=== PATIENT | female | born 1980 | race Caucasian/White ===

== ENCOUNTER 2019-06-17 10:31 | Emergency (ER) | payer MEDICAID ==
[~2019-06-17] VITALS: Ht 162.6 cm; Wt 54.4 kg
--- NOTE | 2019-06-17 10:41 | NUR ---
Patient to ER bed 5 to gown for evaluation. Side rails up. Report given to LC Lundberg and LC Recinos.
[2019-06-17 10:42] VITALS: BP_SYST 130
--- NOTE | 2019-06-17 10:45 | NUR ---
SECURITY CALLED TO ER, PT IS ATTEMPTING TO ELOPE AND RESIST CARE AT THIS TIME
[2019-06-17 10:57] LABS: BILIRUBIN,URINE NEGATIVE (NEGATIVE); BLOOD, URINE NEGATIVE (NEGATIVE); CLARITY/URINE CLEAR (CLEAR); COLOR,URINE YELLOW (YELLOW); GLUCOSE,URINE NEGATIVE (NEGATIVE); KETONES,URINE NEGATIVE (NEGATIVE); LEUKOCYTE ESTERASE ,URINE NEGATIVE (NEGATIVE); NITRITE, URINE NEGATIVE (NEGATIVE); PH,URINE 7.5 (5.0-8.0); PROTEIN URINE NEGATIVE (NEGATIVE); UROBILINOGEN,URINE 0.2 (0.2-1.0)
--- NOTE | 2019-06-17 11:05 | NUR ---
Physician order given to place SOFT type restraints to 4 POINT to prevent HARM TO OTHERS. Resraints placed with quick-release ties to bed frame. Will monitor patient frequently.
[2019-06-17 11:10] LABS: BARBITURATE, URINE NEGATIVE (NEG <=200); BENZODIAZEPINE, URINE POSITIVE (NEG <=150); CANNABINOID, URINE NEGATIVE (NEG <=50); COCAINE, URINE NEGATIVE (NEG <=150); METHAMPHETAMINES SCREEN,URINE NEGATIVE (NEG <=500); OPIATE, URINE NEGATIVE (NEG <=100); PHENCYCLIDINE SCREEN,URINE NEGATIVE (NEG <=25); UR TRICYCLIC ANTIDEPRESSANTS NEGATIVE (NEG <=300); URINE AMPHETAMINE NEGATIVE (NEG <=500); URINE METHADONE NEGATIVE (NEG <=200); URINE OXYCODONE SCREEN NEGATIVE (NEG <=100); URINE PROPOXYPHENE SCREEN NEGATIVE (NEG <=300)
--- NOTE | 2019-06-17 11:10 | NUR ---
PT PULLED OFF RESTRAINTS, BECOMING MORE NONCOMPLIANT WITH CARE.
--- NOTE | 2019-06-17 11:10 | NUR ---
20 gauge angiocath placed to R FA. Use of asceptic technique. Opsite placed over site. Blood return noted. Blood for lab drawn from site. Flushed with 10 cc of normal saline. No evidence of infiltration noted. Patient tolerated well.
[2019-06-17] MEDS ORDERED: LORazepam 2 MG/ML VIAL IM ONE (11:15)
[2019-06-17] MEDS ORDERED: LORazepam 2 MG/ML VIAL ONE (11:16)
[2019-06-17 11:24] LABS: BASOPHILS % (AUTO) 0.9 % (0.0-2.0); HEMATOCRIT 39.1 % (36-48); HEMOGLOBIN 13.2 g/dL (12.0-16.0); LYMPHOCYTES # (AUTO) 0.8 K/uL (1.0-5.5); LYMPHOCYTES % (AUTO) 21.6 % (20.5-51.5); MEAN CORPUSCULAR HEMOGLOBIN 32 pg (27-31); MEAN CORPUSCULAR HGB CONC 34 % (32-36); MEAN CORPUSCULAR VOLUME 95 fL (79.0-98.0); MONOCYTES # (AUTO) 0.7 K/uL (0.0-1.0); MONOCYTES % (AUTO) 17.5 % (1.7-9.3); NEUTROPHILS # (AUTO) 2.3 K/uL (1.8-7.7); PLATELET COUNT (AUTO) 300 K/uL (130-430); RED BLOOD CELL COUNT(AUTO) 4.12 MIL/uL (4.2-6.2); RED CELL DISTRIBUTION WIDTH 13.1 % (9.0-15.0); WHITE BLOOD COUNT (AUTO) 3.9 K/uL (4.8-10.8)
[2019-06-17 11:34] LABS: ANION GAP 5 (5-15); CALCIUM 8.5 mg/dL (8.4-11.0); CHLORIDE 102 mmol/L (98-107); CREATININE 0.67 mg/dL (0.55-1.30); GLUCOSE 104 mg/dL (70-99); POTASSIUM 4.2 mmol/L (3.5-5.1); SODIUM SERUM 135 mmol/L (136-145); UREA NITROGEN, BLOOD 8 mg/dL (8-21)
[2019-06-17 11:35] LABS: GFR AFRICAN AMERICAN 127 mL/min (>90)
[2019-06-17 11:40] LABS: ALANINE AMINOTRANSFERASE 31 U/L (12-78); ALBUMIN 3.8 g/dL (3.4-4.8); AMYLASE 43 U/L (0-100); ASPARTATE AMINOTRANSFERASE 23 U/L (10-37); LIPASE 156 U/L (73-393); TOTAL BILIRUBIN 0.2 mg/dL (0.0-1.0)
[2019-06-17 11:41] LABS: ACETAMINOPHEN < 1 ug/mL (1-30); ALCOHOL, BLOOD < 3 mg/dL (<10)
--- NOTE | 2019-06-17 11:52 | NUR ---
Patient requesting to leave, security called. 2 security gaurds arrived. Patient walked out escorted by 2 security gaurds. Patient self removed IV. No [address]
[2019-06-17 11:55] LABS: CHOLESTEROL 178 mg/dL (<200); LDL CHOLESTEROL 66 mg/dL (<100); TRIGLYCERIDES 108 mg/dL (30-150)
[2019-06-17 12:07] VITALS: BP_SYST 131
[2019-06-17 12:07] LABS: HDL CHOLESTEROL 94 mg/dL (>55)
== END 2019-06-17 11:52 | disposition left against medical advice (07) ==
LOC: SED 10:31
DX: R44.0 Auditory hallucinations (principal)
CPT/HCPCS: 36415; 80053; 80061; 80307; 81003; 81025; 82150; 83036; 83690; 84484; 85025; 99283; G0480; G0481; G0482; J2060

== ENCOUNTER 2019-06-19 01:38 | Emergency (ER) | payer MEDICAID ==
[~2019-06-19] VITALS: Ht 160 cm; Wt 61.7 kg
[2019-06-19 01:38] VITALS: BP_SYST 123
--- NOTE | 2019-06-19 01:40 | NUR ---
Patient placed on suicide precautions. Patient placed in room within close proximity to nurses' station for closer observation and monitoring. All clothing removed, placed in hospital gown. All belongings inventoried, placed in bags and removed from room. Cabinets locked. BP and pulse oximeter cords, and monitor car operator leads removed.
--- NOTE | 2019-06-19 01:40 | NUR ---
Pt placed to ER bed 05, to gown. Pt verbalizes SI with intent of standing in front of a train. Pt states that she has been off of her medications x 2 months. Pt states "I don't know why I stopped my medications." "I'm just tired and feel like people are chasing me." Pt also states "When I go off my medications I have paranoid thoughts and up for days." Pt states that she has currently been up for 2 days in a row. Pt verbalizes previous SI several months ago with same intent. Pt calm, cooperative, flat affect. C/o throat pain 10/20.
--- NOTE | 2019-06-19 01:50 | NUR ---
Dr. Huff at bedside.
[2019-06-19 02:14] LABS: BILIRUBIN,URINE NEGATIVE (NEGATIVE); BLOOD, URINE NEGATIVE (NEGATIVE); CLARITY/URINE CLEAR (CLEAR); COLOR,URINE YELLOW (YELLOW); GLUCOSE,URINE NEGATIVE (NEGATIVE); KETONES,URINE NEGATIVE (NEGATIVE); LEUKOCYTE ESTERASE ,URINE NEGATIVE (NEGATIVE); NITRITE, URINE NEGATIVE (NEGATIVE); PH,URINE 6.5 (5.0-8.0); PROTEIN URINE NEGATIVE (NEGATIVE); UROBILINOGEN,URINE 0.2 (0.2-1.0)
--- NOTE | 2019-06-19 02:24 | NUR ---
Lab at bedside.
[2019-06-19 02:36] LABS: BARBITURATE, URINE NEGATIVE (NEG <=200); BENZODIAZEPINE, URINE NEGATIVE (NEG <=150); CANNABINOID, URINE NEGATIVE (NEG <=50); COCAINE, URINE NEGATIVE (NEG <=150); METHAMPHETAMINES SCREEN,URINE NEGATIVE (NEG <=500); OPIATE, URINE NEGATIVE (NEG <=100); PHENCYCLIDINE SCREEN,URINE NEGATIVE (NEG <=25); UR TRICYCLIC ANTIDEPRESSANTS NEGATIVE (NEG <=300); URINE AMPHETAMINE NEGATIVE (NEG <=500); URINE METHADONE NEGATIVE (NEG <=200); URINE OXYCODONE SCREEN NEGATIVE (NEG <=100); URINE PROPOXYPHENE SCREEN NEGATIVE (NEG <=300)
--- NOTE | 2019-06-19 02:42 | NUR ---
Pt provided with sandwich and juice.
[2019-06-19 02:45] LABS: BASOPHILS % (AUTO) 0.6 % (0.0-2.0); EOSINOPHILS % (AUTO) 0.1 % (0.0-4.0); HEMATOCRIT 38.1 % (36-48); HEMOGLOBIN 12.9 g/dL (12.0-16.0); LYMPHOCYTES % (AUTO) 32.7 % (20.5-51.5); MEAN CORPUSCULAR HEMOGLOBIN 32 pg (27-31); MEAN CORPUSCULAR HGB CONC 34 % (32-36); MEAN CORPUSCULAR VOLUME 94 fL (79.0-98.0); MONOCYTES # (AUTO) 0.5 K/uL (0.0-1.0); MONOCYTES % (AUTO) 17.8 % (1.7-9.3); NEUTROPHILS # (AUTO) 1.5 K/uL (1.8-7.7); NEUTROPHILS % (AUTO) 48.8 % (40.0-70.0); PLATELET COUNT (AUTO) 246 K/uL (130-430); RED BLOOD CELL COUNT(AUTO) 4.06 MIL/uL (4.2-6.2); RED CELL DISTRIBUTION WIDTH 13.1 % (9.0-15.0); WHITE BLOOD COUNT (AUTO) 3.1 K/uL (4.8-10.8)
[2019-06-19 02:52] LABS: ANION GAP 11 (5-15); CALCIUM 8.4 mg/dL (8.4-11.0); CHLORIDE 101 mmol/L (98-107); GLUCOSE 100 mg/dL (70-99); POTASSIUM 3.6 mmol/L (3.5-5.1); SODIUM SERUM 139 mmol/L (136-145); UREA NITROGEN, BLOOD 13 mg/dL (8-21)
[2019-06-19 02:53] LABS: CREATININE 0.73 mg/dL (0.55-1.30)
[2019-06-19 02:55] LABS: GFR AFRICAN AMERICAN 115 mL/min (>90)
--- NOTE | 2019-06-19 02:57 | NUR ---
Note vinny in ED - 06/19/19 at 0258 by RODNEY Patient placed on suicide precautions. Patient placed in room within close proximity to nurses' station for closer observation and monitoring. All clothing removed, placed in hospital gown. All belongings inventoried, placed in bags and removed from room. Cabinets locked. BP and pulse oximeter cords, and magazine keeper leads removed.
--- NOTE | 2019-06-19 02:58 | NUR ---
Metal detector wand used to further screen patient of any potential hazardous belongings.
[2019-06-19 03:06] LABS: ALANINE AMINOTRANSFERASE 25 U/L (12-78); ALBUMIN 3.5 g/dL (3.4-4.8); ASPARTATE AMINOTRANSFERASE 22 U/L (10-37); TOTAL BILIRUBIN 0.2 mg/dL (0.0-1.0)
[2019-06-19 03:08] LABS: ACETAMINOPHEN < 1 ug/mL (1-30); ALCOHOL, BLOOD < 3 mg/dL (<10)
--- NOTE | 2019-06-19 03:30 | NUR ---
Pt pacing about and approaches nurses station demanding to test for Strep. Pt assisted back to room. Dr. Huff notified.
--- NOTE | 2019-06-19 04:00 | NUR ---
Pt comes out of room again requesting that test be done for Strep. Instructed pt to return to room.
--- NOTE | 2019-06-19 04:15 | NUR ---
Specimen collected for Strep and sent to lab. Pt then lays in bed and goes to sleep.
--- NOTE | 2019-06-19 05:00 | NUR ---
Pt resting quietly, NAD.
--- NOTE | 2019-06-19 06:00 | NUR ---
Pt resting quietly, NAD.
--- NOTE | 2019-06-19 07:00 | NUR ---
Pt resting quietly, NAD.
--- NOTE | 2019-06-19 07:14 | NUR ---
Pt report given to LC Cantu.
--- NOTE | 2019-06-19 07:14 | NUR ---
Report received from LC Gonzalez for continuation of care. Patient is sleeping in bed. No signs or symptoms of distress noted. Sitter at bedside.
[2019-06-19] MEDS ORDERED: LORazepam 2 MG/ML VIAL IM ONE ×2 (08:00→13:45)
--- NOTE | 2019-06-19 08:00 | NUR ---
Patient is screaming for ativan and her clothing. Security is at bedside. Patient keeps attempting to leave room. Screaming, "Give me my clothes! These are mine!" Patient has been instructed multiple times that she will get her belongings back when she leaves, she does not verbalize understanding, continuing to scream, "Give me my clothes!" Patient was informed that MD had ordered her Ativan and she screamed, "Give it to me now!" Patient continued to try to leave her room. Patient started trying to take off her hospital gown and was instructed to keep it on, she finally complied after multiple instructions.
--- NOTE | 2019-06-19 08:12 | NUR ---
Security is still at bedside, patient is still trying to get out.
--- NOTE | 2019-06-19 08:15 | NUR ---
Patient went to bed and is now resting.
[2019-06-19] MEDS ORDERED: LORazepam 2 MG/ML VIAL ONE (08:16)
--- NOTE | 2019-06-19 09:15 | NUR ---
Patient is sleeping in bed. No signs of distress noted.
--- NOTE | 2019-06-19 10:15 | NUR ---
Patient is sleeping in bed. No signs or symptoms of distress noted.
--- NOTE | 2019-06-19 11:15 | NUR ---
Patient is sleeping in bed. No signs or symptoms of distress noted.
--- NOTE | 2019-06-19 12:15 | NUR ---
Patient is sleeping in bed. No signs or symptoms of distress noted.
--- NOTE | 2019-06-19 13:12 | NUR ---
Patient has been accepted, patient to be sent to [facility]. Dr. Reeder is accepting physician.
--- NOTE | 2019-06-19 13:15 | NUR ---
Patient is sleeping in bed. No signs or symptoms of distress noted.
--- NOTE | 2019-06-19 13:17 | NUR ---
[facility] to transport patient, ETA 45 minutes.
[2019-06-19] MEDS ORDERED: HALOPERIDOL LACTATE 5 MG/ML VIAL IM ONE (13:45)
[2019-06-19] MEDS ORDERED: HALOPERIDOL LACTATE 5 MG/ML VIAL ONE (14:01)
[2019-06-19 14:10] VITALS: BP_SYST 114
--- NOTE | 2019-06-19 14:10 | NUR ---
Patient to be transferred to [place]. Is being transferred due to higher level of care. Receiving facility has accepting physician and available space. ER physician has signed transfer form. Patient or responsible libertarian has agreed to transfer and signed form. Patient belongings inventoried and will be sent with patient. Copy of nursing notes, lab reports, EKG, Physicians Orders and X-rays to be sent with patient. Report called to Lien at receiving facility. Receiving physician is Dr. Reeder. [facility] ambulance service has been called for transfer. ETA is now.
--- NOTE | 2019-06-19 14:10 | NUR ---
Note undone in EDM - 06/19/19 at 1413 by [email or web address] Patient to be transferred to [facility] Is being transferred due to higher level of care. Receiving facility has accepting physician and available space. ER physician has signed transfer form. Patient or responsible republican has agreed to transfer and signed form. Patient belongings inventoried and will be sent with patient. Copy of nursing notes, lab reports, EKG, Physicians Orders and X-rays to be sent with patient. Report called to Lien at receiving facility. Receiving physician is Dr. Reeder. [facility] ambulance service has been called for transfer. ETA is now.
== END 2019-06-19 14:10 ==
LOC: SED 01:38
DX: F31.9 Bipolar disorder, unspecified (principal); F17.210 Nicotine dependence, cigarettes, uncomplicated
CPT/HCPCS: 36415; 80053; 80307; 81003; 85025; 86403; 87081; 96372; 99285; G0480; G0482; J1630; J2060

== ENCOUNTER 2021-11-11 13:14 | Emergency (ER) | payer MEDICAID ==
[~2021-11-11] VITALS: Ht 160 cm; Wt 59.0 kg
[2021-11-11 13:30] VITALS: BP_SYST 132
[2021-11-11] MEDS ORDERED: IBUP-1969 PO (14:45)
[2021-11-11] MEDS ORDERED: HYDR-3917 PO (14:45)
[2021-11-11] MEDS ORDERED: TRAM50TA2 PO (16:17)
[2021-11-11 16:49] VITALS: BP_SYST 124
== END 2021-11-11 16:49 | disposition home or self-care (01) ==
LOC: SED 13:14
DX: S42.021A Displaced fracture of shaft of right clavicle, initial encounter for closed fracture (principal); X58.XXXA Exposure to other specified factors, initial encounter; Y93.89 Activity, other specified; Y92.89 Other specified places as the place of occurrence of the external cause; Y99.8 Other external cause status
CPT/HCPCS: 73030; 99283